=== PATIENT | female | born 1995 | race Caucasian/White ===

== ENCOUNTER 2019-11-10 13:07 | Outpatient (CLI) | payer MEDICAID ==
[2019-11-10] MEDS ORDERED: PRENAVITE1 TAB PO (13:19)
[2019-11-10 13:33] LABS: BILIRUBIN NEGATIVE (NEGATIVE); GLUCOSE NEGATIVE (NEGATIVE); KETONE NEGATIVE (NEGATIVE); NITRITE NEGATIVE (NEGATIVE); UROBILINOGEN NORMAL (NORMAL)
[2019-11-10 13:37] LABS: UDS - AMPHET NEGATIVE QUAL (NEGATIVE); UDS - BARB NEGATIVE QUAL (NEGATIVE); UDS - BENZO NEGATIVE QUAL (NEGATIVE); UDS - COCAINE NEGATIVE QUAL (NEGATIVE); UDS - OPIATE NEGATIVE QUAL (NEGATIVE); UDS - PCP NEGATIVE QUAL (NEGATIVE); UDS - THC NEGATIVE QUAL (NEGATIVE)
== END 2019-11-10 17:00 | disposition home or self-care (01) ==
LOC: D.LDO 13:07
PROVIDERS: ATTEND Student in an Organized Health Care Education/Training Program
DX: O26.899 Other specified pregnancy related conditions, unspecified trimester (principal); Z3A.00 Weeks of gestation of pregnancy not specified; N85.8 Other specified noninflammatory disorders of uterus

== ENCOUNTER 2019-11-10 19:51 | Inpatient (IN) | payer MEDICAID ==
[~2019-11-10] VITALS: Ht 160 cm; Wt 71.7 kg
[~2019-11-10 19:51] MED LIST: PRENAVITE1 TAB PO
[2019-11-10 21:12] VITALS: BP 131/86; Ht 160 cm; Wt 71.7 kg
[2019-11-10 21:22] LABS: HEMATOCRIT 35.7 % (36.0-48.0); HEMOGLOBIN 11.8 g/dL (12-16); MCH 30.5 pg (26.0-34.0); MCHC 33.1 g/dL (31.0-37.0); MCV 92.2 fL (80.0-100.0); MEAN PLATELET VOLUME 10.5 fL (7.4-10.4); RBC 3.87 10x6/uL (4.00-5.40); RDW 13.6 % (11.5-14.5); WBC 22.7 10x3/uL (4.8-10.8)
--- NOTE | 2019-11-10 21:45 | NUR ---
PT TRANSFERED TO ROOM 1222 FROM LABOR AND DELIVERY. SHE AMBULATED OVER PUSHING HER BABY BOY.
[2019-11-10 22:45] VITALS: BP 131/79
--- NOTE | 2019-11-10 22:45 | NUR ---
PT ASSESSMENT COMPLETED. HEART SOUNDS WNL. LUNGS ARE CLEAR. BOWEL SOUNDS HEARD. FUNDUS IS FIRM AT ONE BELOW. BLEEDING IS MODERATE. PT CAN AMBULATE IN HER ROOM. PADS AND PANTIES ARE IN THE ROOM FOR HER WELL AN IODINE BOTTLE PREPARED FOR HER DONAL CARE. SHE DOES HAVE SOME CRAMPING. CALL LIGHT CLOSE AT HAND. SO IN THE ROOM WITH HER.
--- NOTE | 2019-11-11 01:30 | NUR ---
PT IS RESTING QUIETLY IN HER ROOM WITH BABY AND SO. NO C/O AND NO NEEDS
--- NOTE | 2019-11-11 02:57 | NUR ---
PT IS RESTING WELL AT THIS TIME WITH HER EYES CLOSED. RESPIRATIONS ARE EVEN AND UNLABOARED.
--- NOTE | 2019-11-11 04:00 | NUR ---
PT IS AWAKE AND HOLDING BABY. SHE DENIES PAIN AT THIS TIME. SHE HAS NO NEEDS AND NO C/0. SHE STATES HER BLEEDING IS SMALL-MOD. HER FUNDUS IS FIRM. TAUGHT PT HOW TO FEEL HER FUNDUS TO BE SURE IT IS FIRM.
[2019-11-11 05:58] LABS: HEMATOCRIT 34.1 % (36.0-48.0); HEMOGLOBIN 11.2 g/dL (12-16); MCH 30.5 pg (26.0-34.0); MCHC 32.8 g/dL (31.0-37.0); MCV 92.9 fL (80.0-100.0); MEAN PLATELET VOLUME 10.6 fL (7.4-10.4); PLATELET COUNT 257 10x3/uL (130-400); RBC 3.67 10x6/uL (4.00-5.40); RDW 13.6 % (11.5-14.5); WBC 21.5 10x3/uL (4.8-10.8)
--- NOTE | 2019-11-11 06:05 | NUR ---
PT IS RESTING QUIETLY IN HER ROOM. NO C/O OR NEEDS AT THIS TIME
[2019-11-11 06:19] LABS: LYMPHOCYTES 20 % (15-50); MONOCYTES 5 % (2-11); NEUTROPHILS 75 % (40-80); PLATELET ESTIMATE NORMAL
--- NOTE | 2019-11-11 07:24 | NUR ---
PT REQUESTED A MOTRIN 600 WHICH WAS GIVEN PO. SHE RATES HER PAIN A 5. SHE IS RESTING IN BED WITH THE BABY IN THE CRIB. NO OTHER NEEDS
[2019-11-11 07:54] VITALS: BP 114/78
--- NOTE | 2019-11-11 07:54 | NUR ---
ROUNDING WITH PATIENT. VSS. DENIES NEEDS AT THIS TIME. SIG OTHER IN ROOM ASLEEP. PATIENT SNUGGLING WITH BABY. CALL LIGHT IN REACH. SIDE RAILS UP X2.
--- NOTE | 2019-11-11 09:30 | NUR ---
ROUNDING WITH PATIENT. PATIENT DENIES NEEDS AT THIS TIME. SIG OTHER IN ROOM SLEEPING. BABY SLEEPING IN MOMS ARMS. CALL LIGHT IN REACH, SIDE RAILS UP X2.
--- NOTE | 2019-11-11 10:15 | NUR ---
ASSESSMENT COMPLETE. SEE FLOWSHEET. PATIENT A&O X4. DENIES PAIN. STATES JUST A LITTLE CRAMPING. IV RIGHT FA SL WNL. UP TO BATHROOM AND WALKING IN ROOM. STATES VERY LITTLE VAG BLEEDING. DENIES NEEDS AT THIS TIME. CALL LIGHT IN REACH, SIDE RAILS UP X2. BABY SLEEPING IN MOMS ARMS, SIG OTHER IN ROOM ASLEEP.
--- NOTE | 2019-11-11 11:15 | NUR ---
ROUNDING WITH PATIENT. EDUCATED PATIENT ON HER WBC AND THAT IT WOULD BE REDRAWN TODAY AT 12PM. SHE VERBALIZED UNDERSTANDING AND AGREEMENT. DENIES NEEDS AT THIS TIME. CALL LIGHT IN REACH, SIDE RAILS UP X2. PATIENT SNUGGLING BABY AT THIS TIME. SIG OTHER IN ROOM ASLEEP.
[2019-11-11 12:29] VITALS: BP 129/73
--- NOTE | 2019-11-11 12:29 | NUR ---
ROUNDING WITH PATIENT. VSS. DENIES PAIN, JUST A LITTLE CRAMPING HERE AND THERE. SIG OTHER IN ROOM. BABY ASLEEP IN CRIB. PATIENT DENIES NEEDS. CALL LIGHT IN REACH. SIDE RAILS UP X 2.
--- NOTE | 2019-11-11 13:30 | NUR ---
pt ambulatory in hallway with sig other. pt denies all needs at this time.
--- NOTE | 2019-11-11 14:30 | NUR ---
to pt's room for room check. pt is sitting up the bed, holding , with sig other also lying in the bed with her. pt denies all needs at this time. srup x2, call light and phone within reach.
[2019-11-11 16:26] LABS: HEMATOCRIT 32.1 % (36.0-48.0); HEMOGLOBIN 10.6 g/dL (12-16); MCH 30.6 pg (26.0-34.0); MCV 92.8 fL (80.0-100.0); PLATELET COUNT 215 10x3/uL (130-400); RBC 3.46 10x6/uL (4.00-5.40); RDW 13.6 % (11.5-14.5); WBC 16.5 10x3/uL (4.8-10.8)
[2019-11-11 17:06] LABS: EOSINOPHILS 3 % (0-7); LYMPHOCYTES 15 % (15-50); MONOCYTES 4 % (2-11); NEUTROPHILS 76 % (40-80); PLATELET ESTIMATE NORMAL
--- NOTE | 2019-11-11 17:15 | NUR ---
DR CONTRERAS PHONED WITH UPDATE ON PT. REPORT GIVEN ON REPEAT CBC WITH DECREASE IN WBC AND STABLE H/H. ORDER RECEIVED FOR DISCHARGE TO HOME.
--- NOTE | 2019-11-11 18:00 | NUR ---
discharge instructions explained to pt, pt denies all questions. copies of d/c instructions given to pt, all pt education information provided to pt. pt states she does not want to take the mmr vaccine, or the tdap vaccine. sl dc'd with cath intact. pt denies all questions at this time. pt discharged to room in status, awaiting 's discharge. sr upx 2, call light and phone within reach. so at bedside.
[2019-11-14 04:08] LABS: RAPID PLASMA REAGIN Non Reactive (Non Reactive)
== END 2019-11-11 18:00 | disposition home or self-care (01) | DRG 807 ==
LOC: D.LD 19:51 → D.WS 22:25
PROVIDERS: ADMIT Student in an Organized Health Care Education/Training Program; ATTEND Student in an Organized Health Care Education/Training Program
PROC: 0HQ9XZZ Repair Perineum Skin, External Approach (ICD-10-PCS; principal; 2019-11-10)
PROC: 10E0XZZ Delivery of Products of Conception, External Approach (ICD-10-PCS; 2019-11-10)
DX: O70.0 First degree perineal laceration during delivery (principal); Z37.0 Single live birth; O69.81X0 Labor and delivery complicated by cord around neck, without compression, not applicable or unspecified; Z3A.39 39 weeks gestation of pregnancy; O99.334 Smoking (tobacco) complicating childbirth

== ENCOUNTER 2020-01-24 05:30 | Day surgery (SDC) | payer MEDICAID ==
[2020-01-22 12:10] LABS: BASOPHILS 0.9 % (0-2); HEMATOCRIT 37.7 % (36.0-48.0); HEMOGLOBIN 12.6 g/dL (12-16); IMMATURE GRANULOCYTES 0.1 % (0-5); LYMPHOCYTES 41.8 % (15-50); MCH 29.1 pg (26.0-34.0); MCHC 33.4 g/dL (31.0-37.0); MCV 87.1 fL (80.0-100.0); MONOCYTES 12.4 % (2-11); NEUTROPHILS 39.8 % (40-80); RBC 4.33 10x6/uL (4.00-5.40); RDW 12.6 % (11.5-14.5); WBC 7.8 10x3/uL (4.8-10.8)
[2020-01-22 12:15] LABS: PLATELET COUNT 363 10x3/uL (130-400)
[~2020-01-24] VITALS: Ht 160 cm; Wt 60.8 kg
--- NOTE | ~2020-01-24 | OP ---
PATIENT NAME: ZBIGNIEW FLORES MEDICAL RECORD: [id number] :93 LOCATION:D.OPS ADMISSION DATE: SURGEON: DULCE CONTRERAS DO DATE OF OPERATION: 01/24/2020 PREOPERATIVE DIAGNOSIS: Multiparity, desire for permanent sterilization. POSTOPERATIVE DIAGNOSIS: Multiparity, desire for permanent sterilization. PRIMARY SURGEON: Dulce Contreras DO ANESTHESIA: General ET tube. PROCEDURE: Laparoscopic bilateral tubal ligation. FINDINGS: Normal appearing external genitalia, normal appearing vaginal vault. Normal appearing cervix. Uterus sounded to 10 cm, retroverted. Normal appearing bilateral fallopian tubes. Normal appearing uterus, normal appearing bilateral ovaries. SPECIMENS: Not applicable. ESTIMATED BLOOD LOSS: 5 cc. IV FLUIDS: 1200 cc. URINE OUTPUT: 50 cc concentrated urine. COMPLICATIONS: On inspection of the abdominal cavity, a small uterine perforation at the fundus of the uterus was noted, which was hemostatic with cautery and application of arrest at the end of the procedure. DESCRIPTION OF PROCEDURE: The risks, benefits, alternatives, and indications of the procedure were discussed with the patient. She voiced understanding of the procedure and signed the consent. She understood the tubal ligation was a permanent procedure and could not be reversed and expressed desire for permanent sterility. She was taken to the OR where general anesthesia was administered and found to be adequate. She was placed in the dorsal lithotomy position. She was prepped and draped in the normal sterile fashion. A speculum was placed in the posterior aspect of the vagina and a single tooth tenaculum was used to grasp the anterior lip of the cervix. The uterus was sounded to 10 cm. The HUMI manipulator was placed without incident. The tenaculum was removed and all other instruments were removed from the vagina aside from the HUMI manipulator. Attention was then turned to the abdomen. Gloves were changed. Marcaine was placed in the umbilical fold and a 5-mm incision was created with a scalpel in the umbilical fold and a 5-mm port was placed with the laparoscope for visualization. Pneumoperitoneum was achieved to 15 mmHg. Intraabdominal inspection noted a small uterine perforation with a small amount of bleeding at that time, which was hemostatic by the end of the procedure. A 5-mm port was placed 2 cm superior and 2 cm medial to the left ASIS and a 5-mm port was placed under direct laparoscopic visualization. The patient was placed in steep Trendelenburg position and the bowel was displaced out of the abdomen. The uterus was elevated out of the abdomen with the uterine manipulator and the Kleppinger device was used to cauterize the left tube approximately 1.5 cm from the cornual end. With 5 dexter, the cauterized part of the tube was then cut and OPERATIVE REPORT [id number] ZBIGNIEW FLORES attention was then turned to the right tube and the procedure was repeated on that side with good hemostasis bilaterally. At that time, the small uterine perforation was reinspected and noted to be hemostatic; however, Stephanie was placed to ensure hemostasis. No bleeding was noted at the end of the procedure. Insufflation was decreased to ensure hemostasis at that time and good hemostasis was noted. The patient was taken out of Trendelenburg position and pneumoperitoneum was released from the abdomen. ports were removed and the port sites were closed with 3-0 Monocryl and Dermabond covering with good hemostasis noted. All needle, lap, sponge, and instrument counts were correct times 2. The uterine manipulator was removed and the tenaculum site was noted to be hemostatic. Again, All needle, lap, sponge, and instrument counts were correct times 2. The patient tolerated the procedure well. She was awakened and taken to the recovery room in stable condition. TRANSINT:[id number] Voice Confirmation ID: [id number] DOCUMENT ID: [id number] DULCE CONTRERAS DO CC: [id number] DICTATION DATE: 01/24/20 0842 CLEAT MAKER: 01/24/20 1146 [facility] [place] 01/24/20 [id number] [place] [address]
[2020-01-24 06:07] VITALS: BP 121/82; Ht 160 cm; Wt 60.8 kg
[2020-01-24 06:23] LABS: HCG URINE NEGATIVE (NEGATIVE)
--- NOTE | 2020-01-24 08:57 | NUR ---
0850 WARM BLANKET PROVIDED.
--- NOTE | 2020-01-24 09:05 | NUR ---
0900 DR. DIANE CLAIRE, RX GIVEN. OKAYS RELEASE.
--- NOTE | 2020-01-24 09:05 | NUR ---
2684 PT'S MOTHER RETURNS TO ROOM
--- NOTE | 2020-01-24 10:05 | NUR ---
1005 IV DC'D WITH CATH INTACT DC INSTS REVIEWED VOICED UNDERSTANDING RX GIVEN DRESSED RELEASED IN WC,
== END 2020-01-24 10:10 | disposition home or self-care (01) ==
LOC: D.OPS 05:30
PROVIDERS: ATTEND Student in an Organized Health Care Education/Training Program
DX: Z64.1 Problems related to multiparity (principal); Z30.2 Encounter for sterilization